=== PATIENT | female | born 1985 | race Caucasian/White ===

== ENCOUNTER 2020-07-29 13:11 | Emergency (ER) | payer SELFPAY ==
[2020-07-29] MEDS ORDERED: Ketorolac 30 MG/ML SDV IM ONE (13:59)
--- NOTE | 2020-07-29 14:16 | EDM.PDOC ---
ED HPI GENERAL MEDICAL PROBLEM - General Chief Complaint: Bite:Animal, Insect Stated Complaint: POSSIBLE LIMES DISEASE Time Seen by Provider: 07/29/20 13:50 Source of Information: Reports: Patient, Family, RN History Limitations: Reports: No Limitations - History of Present Illness INITIAL COMMENTS - FREE TEXT/NARRATIVE: Patient was bitten by a tick approximately 2 weeks ago. Significant other remove the tick cleanly. Over the last 3 days patient has developed a classic bull's-eye rash around the area of the bite. Patient has significant pain, headache, joint pain. Rash has enlarged to significant right upper back. Onset: Gradual Onset Date: 07/26/20 Duration: Day(s):, Getting Worse Location: Reports: Back, Generalized (Joint pain and headaches) Quality: Reports: Ache Severity: Moderate Improves with: Reports: None Worsens with: Reports: Movement Context: Reports: Other (Tick bite) Associated Symptoms: Reports: Headaches, Malaise, Rash (Classic bull's-eye), Weakness. Denies: Confusion, Loss of Appetite, Nausea/Vomiting Treatments [employer]: Reports: Acetaminophen, NSAIDS, Other Medication(s) Generalized Pain Score (Numeric/FACES): 6 - Related Data Allergies Allergy/AdvReac Type Severity Reaction Status Date / Time No Known Allergies Allergy Verified 07/29/20 13:51 Home Meds: Home Meds Doxycycline Hyclate [Doxy 100] 100 mg IV TID 21 Days #63 vial 07/29/20 [Rx] traMADol [Ultram] 50 mg PO Q4H PRN 5 Days #20 tab 07/29/20 [Rx] Social & Family History - Tobacco Use Tobacco Use Status *Q: Current Every Day Tobacco User Years of Tobacco use: 7 Packs/Tins Daily: 1 - Caffeine Use Caffeine Use: Reports: Coffee - Recreational Drug Use Recreational Drug Use: Yes Recreational Drug Type: Reports: Marijuana/Hashish Recreational Drug Use Frequency: Daily ED ROS GENERAL - Review of Systems Review Of Systems: See Below Constitutional: Reports: Malaise, Weakness HEENT: Reports: No Symptoms Respiratory: Reports: No Symptoms Cardiovascular: Reports: No Symptoms Musculoskeletal: Reports: Neck Pain, Shoulder Pain, Joint Pain, Muscle Pain Skin: Reports: Rash (Bull's-eye) Neurological: Reports: Headache, Weakness. Denies: Trouble Speaking Psychiatric: Reports: No Symptoms Hematologic/Lymphatic: Reports: No Symptoms ED EXAM, ANIMAL BITE - Physical Exam Exam: See Below Exam Limited By: No Limitations General Appearance: Alert, Moderate Distress Eye Exam: Bilateral Eye: PERRL Neck: Normal Inspection, Supple, Non-Tender, Full Range of Motion Respiratory/Chest: No Respiratory Distress, Lungs Clear, Normal Breath Sounds, No Accessory Muscle Use Cardiovascular: Normal Peripheral Pulses, Regular Rate, Rhythm, No Edema GI/Abdominal: Normal Bowel Sounds, Soft, Non-Tender Back Exam: Other (Tick bite with classic bull's-eye rash right center upper back) Neurological: Alert, Oriented, CN II-XII Intact, Normal Cognition Psychiatric: Normal Affect, Normal Mood Skin Exam: Rash (Bull's-eye classic) Lymphadenopathy: Bilateral: No Adenopathy Course - Vital Signs Last Recorded V/S: Last Vital Signs Temp 36.9 C 07/29/20 13:50 Pulse 77 07/29/20 13:50 Resp 18 07/29/20 13:50 BP 100/43 L 07/29/20 13:50 Pulse Ox 99 07/29/20 13:50 - Orders/Labs/Meds Meds: Medications Discontinued Medications Generic Name Dose Route Start Last Admin Trade Name Freq PRN Reason Stop Dose Admin Ketorolac Tromethamine 30 mg 07/29/20 13:59 07/29/20 14:11 Ketorolac 30 Mg/Ml Sdv IM 07/29/20 14:00 30 mg ONETIME ONE Administration - Re-Assessments/Exams Free Text/Narrative Re-Assessment/Exam: 07/29/20 14:21 Doxycycline for antibiotic management due to tick bite. Take 1 pill 3 times a day for 21 days. Avoid sun due to potential for increased risk for sunburn while taking doxycycline. Utilize sunscreen, longsleeve shirts, large hats. Tramadol for pain management. 20 pills provided. Patient may utilize 1 every 4 hours as needed for pain. May also use ibuprofen at prescription strength 800 mg 3 times a day to help with pain. Patient to follow-up if any changes or concerns or does not show signs of improvement. Departure - Departure Time of Disposition: 14:38 Disposition: Home, Self-Care 01 Clinical Impression: Acute Lyme disease - Discharge Information *PRESCRIPTION DRUG MONITORING PROGRAM REVIEWED*: Yes *COPY OF PRESCRIPTION DRUG MONITORING REPORT IN PATIENT ELDA: No Prescriptions: Doxycycline Hyclate [Doxy 100] 100 mg IV TID Days #63 vial traMADol [Ultram] 50 mg PO Q4H PRN 5 Days #20 tab PRN Reason: Pain Instructions: Insect Bite, Adult, [id number], Lyme Disease Referrals: PCP,None [Primary Care Provider] - Forms: ED Department Discharge Additional Instructions: Take abx as prescribed. Utilize pain medication as needed for pain management. Sepsis Event Note (ED) - Evaluation Sepsis Screening Result: No Definite Risk - Focused Exam Vital Signs: Vital Signs Temp Pulse Resp BP Pulse Ox 07/29/20 13:50 36.9 C 77 18 100/43 L 99 07/29/20 13:40 36.9 C 77 18 100/43 L 99
== END 2020-07-29 14:38 | disposition home or self-care (01) ==
LOC: JP.ED 13:11
DX: A69.20 Lyme disease, unspecified (principal); Z72.0 Tobacco use
CPT/HCPCS: 96372; 99283; J1885